=== PATIENT | male | born 1990 | race African-American/Black ===

== ENCOUNTER 2019-06-28 15:07 | Emergency (ER) | payer SELFPAY ==
[~2019-06-28] VITALS: Ht 188 cm; Wt 79.4 kg
--- NOTE | 2019-06-28 15:34 | NUR ---
PT BIB SELF C/O ABDOMINAL DISCOMFORT SINCE 2 DAYS AGO AFTER EATING "A LOT OF CHICKEN WINGS, PT IS AAOX4, NOT IN RESPIRATORY DISTRESS, HOOKED TO MONITOR, KEPT RESTED AND COMFORTABLE, WILL CONTINUE TO MONITOR.
--- NOTE | 2019-06-28 15:40 | NUR ---
SEEN AND EXAMINED BY DR. SUNG
--- NOTE | 2019-06-28 15:45 | NUR ---
URINE SPECIMEN COLLECTED AND SENT TO LAB.
--- NOTE | 2019-06-28 15:51 | NUR ---
IV LINE ESTABLISHED, BLOOD DRAWN AND SENT TO LAB.
[2019-06-28 15:53] LABS: BASOPHILS % (AUTO) 0.6 % (0.0-2.0); EOSINOPHILS % (AUTO) 0.3 % (0.0-6.0); HEMATOCRIT 42 % (39-51); HEMOGLOBIN 13.7 g/dL (13.5-17.5); LYMPHOCYTES # (AUTO) 0.9 /CMM (0.8-4.8); LYMPHOCYTES % (AUTO) 17.4 % (20.0-44.0); MEAN CORPUSCULAR HGB CONC 33 g/dl (31.0-36.0); MEAN CORPUSCULAR VOLUME 86 fL (80-96); MONOCYTES # (AUTO) 0.7 /CMM (0.1-1.30); MONOCYTES % (AUTO) 13.6 % (2.0-12.0); NEUTROPHILS # (AUTO) 3.6 /CMM (1.8-8.9); NEUTROPHILS % (AUTO) 68.1 % (43.0-81.0); PLATELET COUNT (AUTO) 127 /CMM (150-450); RED BLOOD CELL COUNT(AUTO) 4.89 MIL/uL (4.5-6.0); WHITE BLOOD COUNT (AUTO) 5.3 K/uL (4.3-11.0)
[2019-06-28] MEDS ORDERED: SUCRALFATE 1 G TABLET ONE (15:54)
[2019-06-28] MEDS ORDERED: ONDANSETRON HCL/PF 4 MG/2 ML VIAL ONE (15:54)
[2019-06-28] MEDS ORDERED: ACETAMINOPHEN ES 500 MG TABLET ONE (15:54)
[2019-06-28 16:00] LABS: CALCIUM, SERUM 9.3 mg/dL (8.5-10.1); CREATININE 1.1 mg/dL (0.6-1.3); POTASSIUM 3.6 mmol/L (3.5-5.1)
[2019-06-28 16:00] LABS: APPEARANCE,URINE Clear (CLEAR); BILIRUBIN,URINE Negative (NEGATIVE); BLOOD, URINE Trace-intact Ery/uL (NEGATIVE); COLOR,URINE Yellow (YELLOW); KETONES,URINE Trace (NEGATIVE); LEUKOCYTE ESTERASE ,URINE Negative (NEGATIVE); NITRITE, URINE Negative (NEGATIVE); PROTEIN,URINE 100 mg/dl (NEGATIVE); UGLUCOSE Negative (NEGATIVE)
[2019-06-28] MEDS ORDERED: SUCRALFATE 1 G TABLET PO ONE (16:00)
[2019-06-28] MEDS ORDERED: ONDANSETRON HCL/PF 4 MG/2 ML VIAL IVP ONE (16:00)
[2019-06-28] MEDS ORDERED: IV NS 0.9% 1,000 ML BAG IV ONE (16:00)
[2019-06-28] MEDS ORDERED: ACETAMINOPHEN ES 500 MG TABLET PO ONE (16:00)
[2019-06-28 16:06] LABS: ALBUMIN 4.3 g/dL (3.4-5.0); BILIRUBIN,DIRECT 0.1 mg/dL (0.0-0.2); BILIRUBIN,TOTAL 0.5 mg/dL (0.2-1.0); TOTAL PROTEIN, SERUM 8.7 g/dL (6.4-8.2)
[2019-06-28 16:28] LABS: BACTERIA,URINE Few /HPF (None Seen); MUCUS,URINE Few /LPF (None Seen); SQUAMOUS EPITHELIAL CELL,UR Few /HPF (None Seen); WBC,URINE 0-2 /HPF (0-3)
--- NOTE | 2019-06-28 17:41 | NUR ---
PT IS BACK FROM THE CT SCAN.
[2019-06-28] MEDS ORDERED: ONDANSETRON 4 MG TAB.RAPDIS SL ONE (18:30)
[2019-06-28 19:07] VITALS: BP 138/72
--- NOTE | 2019-06-28 19:07 | NUR ---
IV removed. Catheter intact and site benign. Pressure and 4x4 applied to site. No bleeding noted. Patient discharged to home in stable condition. Written and verbal after care instructions given. Patient verbalizes understanding of instruction.
== END 2019-06-28 19:08 | disposition home or self-care (01) ==
LOC: ER 15:13
DX: R10.32 Left lower quadrant pain (principal); R11.2 Nausea with vomiting, unspecified; F17.200 Nicotine dependence, unspecified, uncomplicated; Z60.2 Problems related to living alone
CPT/HCPCS: 36415; 74176; 80048; 80076; 81001; 83690; 85025; 96361; 96374; 99284; J2405; J7030; 81000-TC